=== PATIENT | female | born 1985 | race Asian ===

== ENCOUNTER 2018-02-19 12:33 | Emergency (ER) | payer SELFPAY | END 2018-02-19 13:04 | disposition left against medical advice (07) | LOC: ER 13:04 | DX: R07.9 Chest pain, unspecified (principal); M25.512 Pain in left shoulder; M54.5 Low back pain; Z53.21 Procedure and treatment not carried out due to patient leaving prior to being seen by health care provider ==

== ENCOUNTER 2018-02-25 00:25 | Emergency (ER) | payer SELFPAY ==
[2018-02-25 00:43] LABS: ADD MAN DIFF? NO
[2018-02-25 00:45] LABS: BASO % 0 % (0-3); EOS # 0.1 x10^3/uL (0.0-0.7); EOS % 1 % (0-3); HEMATOCRIT 44.8 % (36.0-47.0); HEMOGLOBIN 15.7 g/dL (12.0-15.5); LYMPH # 3.9 x10^3/uL (1.0-4.8); LYMPH % 36 % (24-48); MEAN CORPUSCULAR HEMOGLOBIN 32 pg (25-35); MEAN CORPUSCULAR HGB CONC 35 g/dL (31-37); MEAN CORPUSCULAR VOLUME 90 fL (79-100); MONO # 0.7 x10^3/uL (0.0-1.1); MONO % 7 % (0-9); NEUT % 56 % (31-73); PLATELET COUNT 346 x10^3/uL (140-400); RED BLOOD COUNT 4.98 x10^6/uL (3.50-5.40); RED CELL DISTRIBUTION WIDTH 12.1 % (11.5-14.5); WHITE BLOOD COUNT 10.6 x10^3/uL (4.0-11.0)
[2018-02-25] MEDS: ASPIRIN CHEWABLE 81 MG TABLET. PO (00:51)
[2018-02-25 00:56] LABS: ANION GAP 12 (6-14); BLOOD UREA NITROGEN 9 mg/dL (7-20); BUN/CREATININE RATIO 13 (6-20); CALCIUM 10.1 mg/dL (8.5-10.1); CARBON DIOXIDE 26 mmol/L (21-32); CHLORIDE 103 mmol/L (98-107); CREATININE 0.7 mg/dL (0.6-1.0); GFR 98.3; GLUCOSE 97 mg/dL (70-99); POTASSIUM 3.7 mmol/L (3.5-5.1); SODIUM 141 mmol/L (136-145)
[2018-02-25 01:02] LABS: ALBUMIN 4.4 g/dL (3.4-5.0); ALK PHOS 59 U/L (46-116); ALT (SGPT) 63 U/L (14-59); AST (SGOT) 32 U/L (15-37); TOTAL BILIRUBIN 1.4 mg/dL (0.2-1.0); TOTAL PROTEIN 8.7 g/dL (6.4-8.2)
[2018-02-25 01:04] LABS: TROPONINI < 0.017 ng/mL (0.000-0.055)
[2018-02-25 01:34] LABS: D-DIMER < 0.27 ug/mlFEU (0.00-0.50)
== END 2018-02-25 02:08 | disposition home or self-care (01) ==
LOC: ER 00:25
DX: R07.89 Other chest pain (principal); R51 Headache
CPT/HCPCS: 36415; 71045; 80053; 84484; 85025; 85379; 93005; 99285-25